=== PATIENT | female | born 1935 | race African-American/Black ===

== ENCOUNTER 2018-06-21 13:27 | Inpatient (IN) | payer MEDICARE ==
[~2018-06-21] VITALS: Ht 167.6 cm; Wt 56.7 kg
[2018-06-21] MEDS ORDERED: METH500T PO (13:36)
[2018-06-21] MEDS ORDERED: TLXL5 GT (13:36)
[2018-06-21] MEDS ORDERED: ONDANSETRON HCL 4MG/2ML INJ IV STA (15:29)
[2018-06-21] MEDS ORDERED: MORPHINE SULFATE 4 MG/ML CPJ (NOT FOR IM USE) IV STA (15:29)
[2018-06-21] MEDS ORDERED: PANTOPRAZOLE SODIUM 40 MG/VIAL IV STA (15:29)
[2018-06-21] MEDS ORDERED: SODIUM CHLORIDE 0.9% 1,000 ML IV ONE (15:29)
[2018-06-21 16:02] LABS: BASOPHILS % 0.3 % (0.0-2.0); EOSINOPHILS % 1.1 % (0.0-5.0); HEMATOCRIT. 37.2 % (36.0-48.0); HEMOGLOBIN. 12.4 g/dL (12.0-16.0); MEAN CORPUSCULAR HEMOGLOBIN 29.7 pg (28.0-32.0); MEAN CORPUSCULAR VOLUME 89.2 fL (81.0-99.0); MEAN PLATELET VOLUME 8.5 fl (7.4-10.4); MONOCYTES % 6.2 % (2.0-8.0); NEUTROPHILS % 50.4 % (40.0-76.0); PLATELET 259 x1000/uL (130-400); RED BLOOD CELL COUNT 4.17 mill/uL (4.2-5.4); RED CELL DISTRIBUTION WIDTH 15.2 % (11.6-14.6)
[2018-06-21 16:09] LABS: CHLORIDE 104 mEq/L (98-107)
[2018-06-21 16:15] LABS: CLARITY URINE CLEAR (CLEAR); COLOR URINE YELLOW (YELLOW); KETONES URINE NEGATIVE (NEGATIVE); LEUKOCYTE ESTERASE URINE TRACE (NEGATIVE); NITRITE URINE NEGATIVE (NEGATIVE); OCCULT BLOOD URINE 1+ (NEGATIVE); PH URINE 5.5 (4.5-8.0); PROTEIN URINE NEGATIVE (NEGATIVE); SPECIFIC GRAVITY URINE 1.016 (1.005-1.030); UROBILINOGEN URINE 0.2 E.U./dL (0.2-1.0)
[2018-06-21] MEDS ORDERED: IOHEXOL-300 100 ML BOTTLE ONE (18:14)
[2018-06-21 22:29] VITALS: BP 97/64
[2018-06-21] MEDS ORDERED: ALPR1TAB2 MT (23:35)
[2018-06-22] MEDS ORDERED: ONDANSETRON HCL 4MG/2ML INJ IV PRN (00:30)
[2018-06-22] MEDS ORDERED: ACETAMINOPHEN WITH CODEINE 300/30MG TABLET PO PRN (00:30)
[2018-06-22] MEDS: ALPRAZOLAM 0.5 MG TABLET PO PRN ×2 (00:56→21:07)
[2018-06-22] MEDS: SODIUM CHLORIDE 0.9% 1,000 ML IV SCH ×2 (00:56→15:38)
[2018-06-22 04:00] VITALS: BP 102/62
[2018-06-22 06:50] LABS: HEMATOCRIT 31.9 % (36.0-48.0); HEMOGLOBIN 10.5 g/dL (12.0-16.0); MEAN CORPUSCULAR HEMOGLOBIN 29.5 pg (28.0-32.0); MEAN CORPUSCULAR VOLUME 89.5 fL (81.0-99.0); PLATELET 223 x1000/uL (130-400); RED BLOOD CELL COUNT 3.57 mill/uL (4.2-5.4)
[2018-06-22 07:57] LABS: CHLORIDE 108 mEq/L (98-107)
[2018-06-22 08:00] VITALS: BP 123/63
[2018-06-22] MEDS: PANTOPRAZOLE SODIUM 40 MG/VIAL IV SCH (08:32)
[2018-06-22] MEDS ORDERED: BACTERIOSTATIC SODIUM CHLORIDE 0.9% 30ML VIAL IJ ONE (10:00)
[2018-06-22] MEDS ORDERED: SIMETHICONE 40 MG/0.6 ML 30ML ONE ×2 (10:00→10:59)
[2018-06-22] MEDS ORDERED: MIDAZOLAM HCL 5 MG/5 ML VIAL ONE (11:13)
[2018-06-22] MEDS ORDERED: FENTANYL CITRATE/PF 50MCG/ML 2ML VIAL ONE (11:13)
[2018-06-22] MEDS ORDERED: FENTANYL CITRATE/PF 50MCG/ML 2ML VIAL IV PRN (11:28)
[2018-06-22] MEDS ORDERED: MIDAZOLAM HCL 2 MG/2 ML VIAL IV PRN (11:29)
[2018-06-22 12:00] VITALS: BP 111/67
[2018-06-22] MEDS: SUCRALFATE 1 G/10 ML UDC PO SCH ×3 (13:33→20:22)
[2018-06-22 16:00] VITALS: BP 112/63
[2018-06-22 20:00] VITALS: BP 109/63
[2018-06-23] VITALS: BP 104/74
[2018-06-23] MEDS: SODIUM CHLORIDE 0.9% 1,000 ML IV SCH (03:19)
[2018-06-23 04:00] VITALS: BP 116/69
[2018-06-23] MEDS: SUCRALFATE 1 G/10 ML UDC PO SCH ×2 (06:45→13:38)
[2018-06-23 08:00] VITALS: BP 100/62
[2018-06-23] MEDS: PANTOPRAZOLE SODIUM 40 MG/VIAL IV SCH (08:33)
[2018-06-23 12:00] VITALS: BP 138/71
[2018-06-23 14:03] VITALS: BP 138/71
== END 2018-06-23 15:40 | disposition home or self-care (01) | DRG 392 ==
LOC: ER 13:27 → 6WST 17:39 → EDBEDREQ 17:40 → EDBEDREQTM 17:40 → ENRESERV 21:37
PROVIDERS: ADMIT Internal Medicine; ATTEND Internal Medicine
PROC: 0DB68ZX Excision of Stomach, Via Natural or Artificial Opening Endoscopic, Diagnostic (ICD-10-PCS; principal; 2018-06-22)
DX: K29.60 Other gastritis without bleeding (principal); E03.9 Hypothyroidism, unspecified; F41.1 Generalized anxiety disorder; G89.29 Other chronic pain; I10 Essential (primary) hypertension; K57.90 Diverticulosis of intestine, part unspecified, without perforation or abscess without bleeding; K59.00 Constipation, unspecified; M19.90 Unspecified osteoarthritis, unspecified site; R00.1 Bradycardia, unspecified; K21.9 Gastro-esophageal reflux disease without esophagitis; K76.89 Other specified diseases of liver; K76.0 Fatty (change of) liver, not elsewhere classified; Z86.010 Personal history of colon polyps; Z87.11 Personal history of peptic ulcer disease; Z87.891 Personal history of nicotine dependence; Z90.3 Acquired absence of stomach [part of]; Z90.49 Acquired absence of other specified parts of digestive tract; Z90.710 Acquired absence of both cervix and uterus; Z88.9 Allergy status to unspecified drugs, medicaments and biological substances
CPT/HCPCS: 36415; 71045; 74177; 80048; 83605; 84443; 84484; 85027; 86677; 86850; 86900; 88305; 88312; 88313; 93005; 93306; 96374; 96375; 99285; C9113; J2250; J2405; J3010; J3490; J7030; Q9967